=== PATIENT | male | born 1965 | race American Indian/Alaskan Native ===

== ENCOUNTER 2017-12-15 16:18 | Emergency (ER) | payer MEDICAID, OTHER ==
[2017-12-15 16:18] VITALS: BMI 19.2
[2017-12-15 16:31] VITALS: TEMP 98.4; O2SAT 98
[2017-12-15] MEDS ORDERED: Sodium Chloride 0.9% 1,000 ML IV STA (16:38)
--- NOTE | 2017-12-15 16:42 | ED PDOC ---
HPI: General Adult Time Seen by Provider: 12/15/17 16:34 Chief Complaint (Nursing): Medical Clearance History Per: Other Onset/Duration Of Symptoms: Days (1) Current Symptoms Are (Timing): Still Present Additional Complaint(s): Bought by [employer] for medical and psychiatric evaluation prior to incarceration. Pt admits to Heroin use yesterday, uses about 10 bags/day. States feels nauseous and tremulous. Past Medical History Vital Signs: Last Vital Signs Temp 98.4 F 12/15/17 16:31 Pulse 89 12/15/17 16:44 Resp 16 12/15/17 16:31 BP 153/94 H 12/15/17 16:44 Pulse Ox 98 12/15/17 16:42 - Medical History PMH: Asthma - Family History Family History: States: Unknown Family Hx - Immunization History Hx Tetanus Toxoid Vaccination: No Hx Influenza Vaccination: No Hx Pneumococcal Vaccination: No - Home Medications Home Medications: Ambulatory Orders Medication Instructions Recorded Dolutegravir Sodium [Tivicay] 50 mg PO DAILY #3 tab 10/12/16 Emtricitabine/Tenofovir (Tdf) 1 each PO DAILY #3 tablet 10/12/16 [Truvada 200 mg-300 mg Tablet] - Allergies Allergies/Adverse Reactions: Allergies Allergy/AdvReac Type Severity Reaction Status Date / Time No Known Allergies Allergy Verified 10/12/16 11:31 Review of Systems ROS Statement: Except As Marked, All Systems Reviewed And Found Negative Constitutional: Positive for: Weakness Gastrointestinal: Positive for: Nausea Physical Exam - Reviewed Nursing Documentation Reviewed: Yes Vital Signs Reviewed: Yes - Physical Exam Appears: Positive for: Non-toxic, No Acute Distress Head Exam: Positive for: ATRAUMATIC, NORMAL INSPECTION, NORMOCEPHALIC Skin: Positive for: Normal Color, Warm, DRY Eye Exam: Positive for: EOMI, Normal appearance, PERRL ENT: Positive for: Normal ENT Inspection Neck: Positive for: Normal, Painless ROM Cardiovascular/Chest: Positive for: Regular Rate, Rhythm Respiratory: Positive for: CNT, Normal Breath Sounds Gastrointestinal/Abdominal: Positive for: Normal Exam, Soft Back: Positive for: Normal Inspection Extremity: Positive for: Normal ROM Neurologic/Psych: Positive for: Alert, Oriented. Negative for: Motor/Sensory Deficits - Laboratory Results Result Diagrams: 12/15/17 16:52 12/15/17 16:52 - ECG O2 Sat by Pulse Oximetry: 98 - Progress Re-evaluation Time: 18:13 Condition: Improved (Awake alert oriented x 3 No vomiting or tremulousness) Disposition - Clinical Impression Clinical Impression: Heroin abuse - Patient ED Disposition Is Patient to be Admitted: No Counseled Patient/Family Regarding: Diagnosis, Need For Followup - Disposition Referrals: Finn Andrade MD [Primary Care Provider] - Disposition: Discharged/Transfer to Law Enforcement Disposition Time: 18:13 Condition: FAIR Additional Instructions: Medically and psychiatrically stable for incarceration Instructions: General (DC), Drug Abuse and Drug Addiction (DC) Forms: [employer] (Portuguese)
[2017-12-15 17:04] LABS: BASO # 0.1 K/uL (0.0-0.2); BASO % 0.8 % (0.0-2.0); EOS % 0.1 % (0.0-4.0); HEMOGLOBIN 12.9 g/dL (12.0-18.0); LYMPH # 1.2 K/uL (1.0-4.3); LYMPH % 15.9 % (20.0-40.0); MEAN CELL VOLUME 86.1 fl (80.0-94.0); MEAN CORPUSCULAR HEMOGLOBIN 27.9 pg (27.0-31.0); MEAN CORPUSCULAR HGB CONC 32.4 g/dL (33.0-37.0); MONO # 0.3 K/uL (0.0-0.8); MONO % 4.4 % (0.0-10.0); NEUT # 5.9 K/uL (1.8-7.0); NEUT % 78.8 % (50.0-75.0); RBC 4.61 Mil/uL (4.40-5.90); RED CELL DISTRIBUTION WIDTH 14.6 % (11.5-14.5); WHITE BLOOD COUNT 7.4 K/uL (4.8-10.8)
[2017-12-15 17:30] LABS: CALCIUM 9.4 mg/dL (8.4-10.2); GFR AFRICAN-AMERICAN > 60; GFR NON-AFRICAN AMERICAN > 60
[2017-12-15 17:42] LABS: ALB/GLOB RATIO 1.1 (1.0-2.1); ALBUMIN 4.3 g/dL (3.5-5.0); ALT/SGPT 12 U/L (21-72); AST/SGOT 36 U/L (17-59); BLOOD UREA NITROGEN 13 mg/dl (9-20)
[2017-12-15 18:37] VITALS: BP 135/84; PULSE 88; RESP 18
[2017-12-15 18:39] LABS: BARBITURATES, UR NEGATIVE (NEGATIVE); BENZODIAZEPINES, UR NEGATIVE (NEGATIVE); OPIATES, UR POSITIVE (NEGATIVE); PHENCYCLIDINE, UR NEGATIVE (NEGATIVE)
--- NOTE | 2017-12-16 11:12 | CARD ---
APPROVED REPORT EKG Measurement Heart [id number] <Conclusion> Normal sinus rhythm Rightward axis Borderline ECG
== END 2017-12-15 18:37 ==
LOC: SUPCPDRO 16:18 → H.ER 16:18
DX: F11.10 Opioid abuse, uncomplicated; J45.909 Unspecified asthma, uncomplicated
CPT/HCPCS: 80053; 80320; 80324; 80345; 80346; 80349; 80353; 80358; 80361; 83992; 85025; 93005; 99282; J7040